=== PATIENT | female | born 1945 | race Caucasian/White ===

== ENCOUNTER 2023-07-23 16:18 | Inpatient (IN) | payer OTHER, SELFPAY ==
[2023-07-23] VITALS (14 sets, daily range): BP systolic 106–147; BP diastolic 66–101; BMI 27.4; BMI 27.2
[2023-07-23 13:33] LABS: % Basophils 0.3 % (0-2); % Eosinophils 0.4 % (0-6); % Immature Granulocytes 0.4 % (0-0.5); % Lymphocytes 17.6 % (20.5-51.1); % Monocytes 8.8 % (1.7-9.3); % Neutrophils 72.5 % (42.2-75.2); Absolute Basophils 0.1 10^3/uL (0-0.2); Absolute Eosinophils 0.1 10^3/uL (0-0.7); Absolute Immature Granulocytes 0.1 10^3/uL (0-0.05); Absolute Lymphocytes 2.9 10^3/uL (1.2-3.4); Absolute Monocytes 1.4 10^3/uL (0.1-0.6); Absolute Neutrophils 11.8 10^3/uL (1.4-6.5); Hematocrit 43.4 % (37.0-47.0); Hemoglobin 14.9 g/dL (12.0-16.0); Mean Corp Hgb Conc. 34.3 g/dL (33.0-37.0); Mean Corpuscular Hgb 29.5 pg (27.0-31.0); Mean Corpuscular Volume 85.9 fL (81.0-99.0); Mean Platelet Volume 10.1 fL (7.4-10.4); Nucleated Red Blood Cells % 0 %; Platelet Count 249 10^3/uL (130-400); Red Blood Cell Count 5.05 10^6/uL (4.20-5.40); Red Cell Dist. Width 13.5 % (11.5-14.5); White Blood Cell Count 16.2 10^3/uL (4.8-10.8)
[2023-07-23 13:56] LABS: D-Dimer 11.95 ug/mlFEU (0.00-0.50)
[2023-07-23 14:20] LABS: ALT (SGPT) 22 U/L (0-35); AST (SGOT) 30 U/L (14-36); Albumin 3.9 g/dl (3.5-5.0); Alkaline Phosphatase 78 U/L (38-126); Blood Urea Nitrogen 15 mg/dl (7-17); Calcium 9.9 mg/dl (8.4-10.2); Carbon Dioxide 25 mmol/L (22-30); Chloride 108 mmol/L (98-107); Estimated Creatinine Clearance 62 ml/min; Glucose 136 mg/dl (70-99); Potassium 4.7 mmol/L (3.5-5.1); Sodium 140 mmol/L (135-145); Total Bilirubin 0.4 mg/dl (0.2-1.3); Total Protein 6.7 g/dl (6.3-8.2); eGFR > 60.00
[2023-07-23 14:33] LABS: NT-proBNP 3960 pg/ml
--- NOTE | 2023-07-23 14:55 | ED.GENMED ---
History of Present Illness
General
Chief Complaint: Breathing Problem
Time Seen by Provider: 07/23/23 13:02
Travel History
Have you had any contact with someone who has COVID-19?: No
Do you have any symptoms of coronavirus? Fever > 100 degrees, chills, cough, shortness of breath, sore throat, loss of taste or smell, muscle aches, or headache?: No
History of Present Illness
History of Present Illness:
78-year-old female with no significant past medical history presents to the emergency department for evaluation of shortness of breath with exertion. She notes that the symptoms have been ongoing for approximately 1 week but yesterday became
dramatically more significant. States she cannot take more than 10-15 steps without becoming winded and feeling ill or syncopal. Denies any associated chest pain. Has noted that her heart rate is elevated at rest for the past several days.
Denies any fevers, chills, sweats, coughing, nausea, vomiting, or leg swelling. Has no prior history of DVT or PE. Denies any recent prolonged travel, surgeries, or immobilization
Past History
Past History
ED Past Medical History: None
ED Past Surgical History: None
Review of Systems
Review of Systems
Allergies reviewed?: Yes
All Other Systems: ROS reviewed and negative except as documented in HPI and ROS
Phy Exam
Physical Exam
Physical Exam:
GEN: Well appearing, NAD, WDWN
Eyes: PERRLA, EOMs intact, no scleral icterus
HENT: NCAT, oral mucosa moist
Lungs: CTAB, no wheezes, rales, rhonchi, normal chest wall excursion
Cardiac: Tachycardic, regular, no murmur
Abdomen: S, NT, ND, NABS, no masses or hepatosplenomegaly
Neuro: AO x 3
MSK: No gross deformity or ecchymosis. No edema. No digital clubbing
Skin: No rashes, petechiae. Normal color, no pallor or jaundice.
Psych: Calm, cooperative, proper hygiene
Scores
Heart Failure Risk
Heart Failure Risk Score: Not Applicable
Course
Orders/Labs/Results
Orders:
Orders
07/23/23 13:01
Electrocardiogram (*1) Urgent
Reason for Study: Tachycardia
EKG- Treatment ONCE
07/23/23 13:26
Complete Blood Count/With Diff Urgent
Comprehensive Metabolic Panel Urgent
D-Dimer Urgent
NT-proBNP Urgent
PTT Urgent
Comment: PTT ADDED ON BY FLOOR 2:40PM 07-23-23
TSH Reflex To Free T4 Urgent
Troponin I Urgent
07/23/23 14:05
CT Chest Pe Study Urgent
Comment:
Reason For Exam: SOB, elevated dimer
07/23/23 14:36
PTT Urgent
Comment: Obtain baseline before beginning heparin infusion if not already collected
Heparin 6,200 units IV NOW STA
Nursing to Place Non Medication Order As Directed
Physician Order: PTT 6 hours after initial start of Heparin infusion
07/23/23 14:42
Add On- LAB Urgent
Tests Added?: PTT
07/23/23 14:45
Heparin 82064 Units/250 ml 25,000 units in 250 ml IV PER PROTOCOL
Weight to be used for heparin protocol in kilograms (kg):: 77
Protocol:: DVT/PE
PTT Goal Range to be used:: PTT 73 to 111 seconds
Order type:: Initial
INITIAL Infusion Dose (UNITS/KG/hr) & then follow protocol:: 18 units/kg/hr
Infusion Dose in UNITS/hr & then follow protocol (UNITS/hr):: 1,400
INFUSION RATE in mL/hr & then follow protocol (mL/hr):: 14
For DVT/PE algorithm, re-bolus for low PTT?: Yes
PTT less than or equal to 64 seconds:: Re-bolus 80 units/kg (max 10,000units). Increase by 300 units/hr
(+ 3mL/hr)
PTT 64.1 to 72.9 seconds:: Re-bolus 40 units/kg (max 5,000 units). Increase by 200 units/hr
(+ 2mL/hr)
PTT 73 to 111 seconds:: Target Range. No change in rate.
PTT 111.1 to 130.9 seconds:: Decrease rate by 200 units/hr (- 2 mL/hr)
PTT 131 to 199.9 seconds:: HOLD for 1 hr. Then decrease by 200 units/hr (- 2mL/hr)
PTT greater than or equal to 200 seconds:: HOLD for 2 hrs & Notify Provider. Then decrease by 300 units/hr
(- 3mL/hr)
Lab follow-up:: Each change, PTT q6h until 2 consecutive are therapeutic. Then
PTT daily.
07/23/23 15:02
Heparin 3,100 units IV PRN PRN
Heparin 6,200 units IV PRN PRN
07/23/23 15:47
Echo 2D MMode Color/Doppler Stat
Reason for Study: submassive PE
Cardiology Consult: Delbert Mendez
07/23/23 21:15
PTT Routine
Abnormal Lab Results
07/23/23
13:26
WBC 16.2 H 10^3/uL
(4.8-10.8)
Abs Immat Gran (auto) 0.1 H 10^3/uL
(0-0.05)
Absolute Neuts (auto) 11.8 H 10^3/uL
(1.4-6.5)
Absolute Monos (auto) 1.4 H 10^3/uL
(0.1-0.6)
Lymphocytes % 17.6 L %
(20.5-51.1)
D-Dimer 11.95 H ug/mlFEU
(0.00-0.50)
Chloride 108 H mmol/L
(98-107)
Glucose 136 H mg/dl
(70-99)
Troponin I 1.620 H* ng/ml
07/23/23 13:26
07/23/23 13:26
Vital Signs
Initial and Last Documented VS:
Initial Vital Signs
Temp Pulse Resp BP Pulse Ox
97.8 F 109 20 141/91 96
07/23/23 12:57 07/23/23 12:57 07/23/23 12:57 07/23/23 12:57 07/23/23 12:57
Last Documented Vital Signs
Temp Pulse Resp BP Pulse Ox
97.8 F 106 17 147/96 97
07/23/23 12:57 07/23/23 15:30 07/23/23 15:30 07/23/23 15:21 07/23/23 15:30
MDM/Problems Addressed
MDM/Problems Addressed:
78-year-old female presenting with exertional shortness of breath and tachycardia, found to have submassive bilateral pulmonary embolism. Evidence for right heart strain noted on labs. Case was reviewed with interventional radiology and
line inspector, at this time no immediate indication for thrombolysis but stat echo was requested to evaluate degree of heart strain and pulmonary artery pressures. Will be admitted to the hospital service intensive care unit on IV heparin
Comment
Comment:
EKG independently interpreted by me shows a sinus tachycardia at a rate of [address] depressions laterally, QTc of 436
*Critical Care Note
Total Time (30-74mins, 75-104mins- exclusive of procedures): 45 minutes
comment:
Critical care time: 45 minutes
Critical care time was exclusive of: Separately billable procedures, treating other patients, and teaching time
Critical care was necessary to treat or prevent imminent or life-threatening deterioration of the following conditions: Submassive pulmonary embolism
Critical care time spent personally by me on the following activities:
[x] Review of old charts
[x] Obtaining history from patient or surrogate
[x] Ordering and review of the laboratory studies
[x] Ordering and review of radiographic studies
[x] Ordering and performing treatments and interventions
[x] Patient patient's response to treatment
[x] Development of treatment plan with patient or surrogate
ED Attending Note
-
Portions of this chart may have been created with voice recognition software.� Occasional wrong word or��sound alike� substitutions may have occurred due to the inherent limitations of voice recognition software.
Discharge Plan
Departure
Patient Disposition: Admit
Date of Disposition: 07/23/23
Time of Disposition: 15:30
Admit to: Telemetry
Presentation/result/management discussed w/ accepting MD/DO: Hospitalist
Discharge Problem:
Bilateral pulmonary embolism
Prescriptions:
No Action
pseudoephedrine HCl [Sufedrin] 60 mg Tablet
60 mg PO BIDPRN PRN (Reason: allergies)
guaifenesin [Mucinex] 600 mg Tablet Extended Release 12hr
600 mg PO BIDPRN PRN (Reason: cough)
Referrals:
Skyla Pereira PA-C [Family Provider] -
Interventions
Interventions:
*Risk Screen - Suicide Last Done: 07/23/23 12:57
*General Assessment Last Done: 07/23/23 12:57
*Neglect/Abuse Screening Last Done: 07/23/23 12:57
ED- Cardiac Assessment Last Done: 07/23/23 13:04
ED- Pulmonary Assessment Last Done: 07/23/23 13:04
Discharge Date and Time
Print Language: NORTHER[place] IRISH
[2023-07-23] MEDS: HEPARIN 25000 UNITS/250 ML IV (15:14)
[2023-07-23] MEDS: HEPARIN 6200 UNITS IV (15:17)
--- NOTE | 2023-07-23 16:04 | HPS.HSE ---
Family Physician
-
Family Physician: Skyla Pereira PA-C
Chief Complaint
-
shortness breath,
History of Present Illness
Patient is a 78-year-old female with past medical history of lumbar radiculopathy, left knee meniscal tear, seasonal allergy came to ER with new onset of shortness of breath chest discomfort for last 1 week. First noticed new onset of exertional
shortness of breath approximately week back, no associated cough/hemoptysis/fever episode. Last 24-hour patient felt symptoms rapidly worsening and came to ER. Patient reported episode of palpitation up to a point where patient felt she would pass
out when doing grocery in supermarket.
Patient denies of having any abdominal/GI/ complaints.
Patient denies of having previous history of blood clot. No recent travel. Up-to-date for age-appropriate cancer screening. No family history of hypercoagulable disorder. Not on any hormonal supplements.
Medical History
Past Medical History
Past Medical History: Reports Other
Additional Past Medical History:
lumbar radiculopathy, left knee meniscal tear, seasonal allergy
Past Surgical History: Reports Other
Social History
Tobacco: Non-smoker
Alcohol: None
Drug: None
Living: With Family
Employment: Retired
Family History
Family History: Other (no family history of cancer or hypercoagulable disorder)
Allergies / Home Medications
Allergies reflects when Allergies were last updated in [employer].
Home Medications with original date entered in [employer]
Allergy/Medication List:
Allergies
Allergy/AdvReac Type Severity Reaction Status Date / Time
No Known Allergies Allergy Verified 07/23/23 12:57
Home Medications
guaifenesin 600 mg tablet, extended release 12 hr (Mucinex) 600 mg PO BIDPRN PRN cough 07/23/23
pseudoephedrine HCl 60 mg tablet 60 mg PO BIDPRN PRN allergies 07/23/23
Review of Systems
-
A 12 point ROS was completed and negative except as noted: Yes
Physical Exam
Vital Signs
Vital Signs
Temp Pulse Resp BP Pulse Ox
97.8 F 106 17 147/96 97
07/23/23 12:57 07/23/23 15:30 07/23/23 15:30 07/23/23 15:21 07/23/23 15:30
Physical Exam
General: No Apparent Distress
HEENT: NormoCephalic, Moist mucous membranes and Atraumatic
Respiratory: Clear
Cardiac: S1/S2 and Regular Rhythm; No Murmur or Rub
GI: Soft, Non Tender, Non Distended and Normal Bowel Sounds; No Organomegaly
Rectal: Deferred by Provider
Musculoskeletal: No Clubbing, No Cyanosis and No Edema
Skin: No Rash
Neuro: Nonfocal/grossly intact
Laboratory Results
-
07/23/23 13:26
07/23/23 13:26
Laboratory Results
APTT 26.0 Sec (23.4-35.0) 07/23/23 13:26
Total Bilirubin 0.4 mg/dl (0.2-1.3) 07/23/23 13:26
AST 30 U/L (14-36) 07/23/23 13:26
ALT 22 U/L (0-35) 07/23/23 13:26
Alkaline Phosphatase 78 U/L (38-126) 07/23/23 13:26
Troponin I 1.620 ng/ml H* 07/23/23 13:26
Data Reviewed
-
Diagnostic Radiology: Image Personally Visualized and interpreted, Report Reviewed by me, Discussed with Patient and Discussed with Family
CT Scan: Image Personally Visualized and interpreted, Report Reviewed by me, Discussed with Physician, Discussed with Patient and Discussed with Family
Lab Data: Labs Reviewed by me, Discussed with Patient and Discussed with Family
Impression/Plan
-
CT chest PE
Examination is positive for pulmonary embolism, with large embolus burden. There is evidence for significant right heart strain.
Trace amount of pleural fluid on the right. Mild dependent atelectasis in the posterior lower lungs. At this time, there is no evidence for pulmonary infarction by CT.
Coronary artery calcifications are present. Please correlate with symptoms of and risk factors for coronary artery disease, with further workup as clinically appropriate.

1. Bilateral PE - submassive
Right heart strain
-Presented for 1 week of shortness of breath
-+ Palpitations/presyncope feeling. No lower extremity swelling
-Denies travel/history of cancer/family history of hypercoagulable disorder/personal history of previous blood clots/no h/o of miscarriages
-Up-to-date for age-appropriate screening
-CT chest PE finding as above
-Emergent TTE ordered in ER
-Trop 1.6 and ProBNP 3960. High D-dimer of 11.95
-PESI score - 98 - class III (age/HR 110). 30 day mortality of 3.2-7.1%
-Traffic Sign Supervisor/interventional radiology evaluated patient finding and will consider thrombolysis if clinical condition deteriorates
-Patient started on heparin drip in ER, continue
-Admit patient to ICU level care
2. Troponin elevation
-Type II elevation from right heart strain from bilateral PE
-EKG reviewed and no ST seg changes
-no previous h/o CAD/non smoker
3. Leukocytosis
-Presumed reactive in nature
-No productive cough/dysuria/diarrhea.
-Monitor off of antibiotic
4. Hyperglycemia
-check A1c in morning
Seasonal allergies
Lumbar radiculopathy
History of left meniscal tear
DVT PPX -heparin drip
Full code
Total time spent : 79 mins
I personally saw and examined the patient.
I have reviewed all diagnostic interpretations and treatment plans as written.
Time includes patient management by me, time spent at the patients bedside, time to review lab and imaging results, discussing patient care, documentation in the medical record, and time spent with the family or caregiver and discussing care plan
with RN/Consultants.
--- NOTE | 2023-07-23 17:35 | CON.PUL ---
Consultation
Consultation Request
Date/Time Consultation Requested: 07-23-23
Date/Time Consultation Performed: 07-23-23
Requesting Provider: Hospitalist mayra
Performing Provider: Dr Gillis
Reason for Consultation: PE
Medical History
-
Chief Complaint: VALDES
History of Present Illness:
Mrs Mariaelena Painting is a 78/W adm 07-22 with new onset VALDES and a presyncopal episode on d MANAGED CARE COORDINATOR, symptoms developed when she was walking from her car to a convenience store, overnight developed mild intermittent chest pain without radiation. Reports no
past medical history, she is not on outpatient medications, denies allergies. Denies family history of VTE. Denies recent trauma or prolonged periods of immobilization. Reports that back in October 2022 she sustained a left constraint strain and
was recommended a soft cast which she used only for 2 days, then received left knee joint injection, shortly after this event she flew to a back from [place] with no issues. Back in April 2023, she sustained mechanical fall and hit her left
knee and ribs, she follow her PCP on these, apparently the injury was a no consequence. Denies unintentional weight loss, denies night sweats or other symptoms of significance prior to the current event
Hysterectomy for uterine/bladder prolapse 2014
Negative mammogram Nov 2022
Negative colonoscopy at age 70
Nonsmoker
Seen at ER, in spite of bilateral PE has remained hemodyn and resp gonzalez stable (on RA)
Past Medical History
Past Medical History: None and Other (On no meds, NKDA)
Past Surgical History: None
Social History
Tobacco: Non-smoker
Alcohol: None
Drug: None
Personal:
Living: With Family
Employment: Retired
Family History
Family History: Reviewed & Not Pertinent
Allergies / Home Medications
Allergies
Allergy/AdvReac Type Severity Reaction Status Date / Time
No Known Allergies Allergy Verified 07/23/23 12:57
Home Medications
�Medication �Instructions �Recorded �Confirmed �Last Taken �Type
guaifenesin 600 mg tablet, 600 mg PO BIDPRN PRN cough 07/23/23 07/23/23 Unknown History
extended release 12 hr (Mucinex)
pseudoephedrine HCl 60 mg tablet 60 mg PO BIDPRN PRN allergies 07/23/23 07/23/23 Unknown History
Review of Systems
-
History Source: Patient
All other systems: Negative unless noted
Constitutional: Fatigue
Respiratory: Trouble Breathing (VALDES)
Neuro: Dizzy (presyncope event on d MANAGED CARE COORDINATOR)
Vitals / Labs / Diagnostic Testing
Vital Signs
Temp Pulse Resp BP Pulse Ox
97.8 F 106 25 141/101 94
07/23/23 12:57 07/23/23 17:00 07/23/23 17:00 07/23/23 17:00 07/23/23 17:00
Lab Data
07/23/23 13:26
07/23/23 13:26
Laboratory Results
07/23/23
13:26
APTT 26.0
Diagnostic Testing:
Physical Exam
-
HEENT: Normocephalic, Moist Mucous Membranes and Thrush (n)
Cardiovascular: Regular Rhythm, Murmur (n), Peripheral Edema (n), Calf Tenderness (n) and JVD (n)
Respiratory: Clear and Non-Labored Respirations
GI: Soft, Non Distended and Non Tender
Neurology: Awake, AO x 3 and No Motor Deficits
Skin: Warm
General: Respiratory Distress (n at rest)
Assessment
-
Assessment:
Mrs Mariaelena Painting is a 78/W adm 07-22 with new onset VALDES and a presyncopal episode on MANAGED CARE COORDINATOR, symptoms developed when she was walking from her car to a convenience store, overnight developed mild intermittent chest pain without radiation. Reports no
past medical history, she is not on outpatient medications, denies allergies. Denies family history of VTE. Denies recent trauma or prolonged periods of immobilization. Reports that back in October 2022 she sustained a left constraint strain and
was recommended a soft cast which she used only for 2 days, then received left knee joint injection, shortly after this event she flew to a back from [place] with no issues. Back in April 2023, she sustained mechanical fall and hit her left
knee and ribs, she follow her PCP on these, apparently the injury was a no consequence. Denies unintentional weight loss, denies night sweats or other symptoms of significance prior to the current event
Impression:
Bilateral R>L PE
No PMH or FH or VTE
Markedly elevated D-dimer
Presyncopal event on d MANAGED CARE COORDINATOR
Conditions MANAGED CARE COORDINATOR:
Hysterectomy for uterine/bladder prolapse 2014
Negative mammogram Nov 2022
Negative colonoscopy at age 70
Nonsmoker
Plan:
O2 protocol as needed
Currently on RA, POx 97%
Not on home O2 or BDs
Evaluate O2 needs PTD
Acapella valve
Aspiration precautions
CTA chest: R>>L PE
TTE: Normal RV size with decreased systolic function. Free wall is akinetic with hyperdynamic apex, Ontiveros's sign. Mild tricuspid regurgitation. Top normal estimated PASP of 38
CAMILO doppler US: pending
BNP ^
D-dimer ^
Trop ^
EKG ST 108
Eventual hypercoagulable workup and age/sex related cancer screening as outpatient
Full PESI:
Heparin drip
Benefits and risks of thrombolytics therapy were reviewed with patient
Patient has mild tachycardia and no hypotension in spite of above mentioned TTE changes
Currently risks of aggressive thrombolytic therapy outweigh [id number] notified of options, reasons for conservative standard of care therapy and is in agreement
IRad recommends conservative mgmt for now and to reevaluate for potential intervention accordingly
Bedrest �24-48 hours
Will reevaluate for initiation of DOAC depending on response to IV hep and observation
DVT prophylaxis-on full anticoagulation
Early nutrition
Early mobilization
Outpatient pulmonary follow-up with [facility]
IMU level of care, follow with pulmonary once off ICU
D/w Mrs Painting and her daughter at ER
D/w ICU RNs
[2023-07-23 18:06] LABS: INR 1.06; PT 13.6 Sec (11.4-14.6)
[2023-07-23 18:25] LABS: Magnesium 2.2 mg/dl (1.6-2.3)
--- NOTE | 2023-07-23 19:35 | PTCARENOTE ---
Received pt from ED around 6pm on heparin gtt at 1400 units/hr. Pt on room air with sats mid 90s. Pt denies sob at rest but is tachypneic 20-30s. Pt does have a dry cough, that she reports she has also had over the last week. Pt able to
participate in answering admission questions without increased hypoxia. Pt denies pain. Requesting to go to bathroom, but made aware of bedrest orders. Pt opted for purewick. Pt updated to bleeding precautions and plan of care. Call [facility] in
reach.
--- NOTE | 2023-07-23 22:52 | PTCARENOTE ---
Received patient AAOx3, following commands, denying pain. Sinus tach, 100s. BP stable, 130s-140s/80s-90s. No edema, palpable radial and pedal pulses bilaterally. Normothermic. 93% on room air, lung sounds clear, diminished and fine crackles at the
bases. Last BM today prior to admission. Abdomen soft, nontender, positive bowel sounds. Purewick in place draining yellow urine. Skin intact. Right AC peripheral WNL, heparin gtt infusing per protocol. Next PTT 0430. Call [facility] within reach.
[2023-07-24] VITALS (8 sets, daily range): BP systolic 101–148; BP diastolic 57–88; BMI 27.7
[2023-07-24 04:47] LABS: Hematocrit 40.9 % (37.0-47.0); Hemoglobin 13.8 g/dL (12.0-16.0); Mean Corp Hgb Conc. 33.7 g/dL (33.0-37.0); Mean Corpuscular Hgb 29.6 pg (27.0-31.0); Mean Corpuscular Volume 87.6 fL (81.0-99.0); Mean Platelet Volume 10.6 fL (7.4-10.4); Platelet Count 242 10^3/uL (130-400); Red Blood Cell Count 4.67 10^6/uL (4.20-5.40); Red Cell Dist. Width 13.4 % (11.5-14.5); White Blood Cell Count 15.9 10^3/uL (4.8-10.8)
--- NOTE | 2023-07-24 04:55 | PTCARENOTE ---
CHG bath done, patient brushed teeth and used mouth wash. Sheets changed, labs sent. Call [facility] within reach.
[2023-07-24 04:56] LABS: APTT 96.3 Sec (23.4-35.0)
--- NOTE | 2023-07-24 05:12 | DOWNTIME ---
There was a [employer] Downtime on 07/23/2023 from 0100 to 07/24/2023 at 0300. Downtime documentation of patient's care, including medication administrations, has been reconciled in the electronic record per guidelines. Refer to the
patient's paper chart under the miscellaneous tab to see printed paper medication records and downtime forms.
[2023-07-24 05:53] LABS: Blood Urea Nitrogen 14 mg/dl (7-17); Calcium 9.3 mg/dl (8.4-10.2); Carbon Dioxide 21 mmol/L (22-30); Chloride 106 mmol/L (98-107); Estimated Creatinine Clearance 70 ml/min; Glucose 123 mg/dl (70-99); Potassium 4.4 mmol/L (3.5-5.1); Sodium 136 mmol/L (135-145); eGFR > 60.00
--- NOTE | 2023-07-24 07:13 | W.PN.PUL3 ---
Today's Communication / Plan
-
IV hep
Telem
Assessment
-
Assessment:
Mrs Mariaelena Painting is a 78/W adm [birth year]-14 with new onset VALDES and a presyncopal episode on d CORPORATE PLANNING MANAGER, symptoms developed when she was walking from her car to a convenience store, overnight developed mild intermittent chest pain without radiation. Reports no
past medical history, she is not on outpatient medications, denies allergies. Denies family history of VTE. Denies recent trauma or prolonged periods of immobilization. Reports that back in October 2022 she sustained a left constraint strain and
was recommended a soft cast which she used only for 2 days, then received left knee joint injection, shortly after this event she flew to a back from [place] with no issues. Back in April 2023, she sustained mechanical fall and hit her left
knee and ribs, she follow her PCP on these, apparently the injury was a no consequence. Denies unintentional weight loss, denies night sweats or other symptoms of significance prior to the current event
Impression:
Bilateral R>L PE
Potentially provoked event due to L knee injury secondary to fall in Apr 2023, but no clear cut case
No PMH or FH or VTE
Markedly elevated D-dimer
Presyncopal event on d CORPORATE PLANNING MANAGER
Conditions CORPORATE PLANNING MANAGER:
Hysterectomy for uterine/bladder prolapse 2014
Negative mammogram Nov 2022
Negative colonoscopy at age 70
Nonsmoker
Plan:
O2 protocol as needed
Currently on RA, POx 97%
Not on home O2 or BDs
Evaluate O2 needs PTD
Acapella valve
Aspiration precautions
CTA chest: R>>L PE
TTE: Normal RV size with decreased systolic function. Free wall is akinetic with hyperdynamic apex, Ontiveros's sign. Mild tricuspid regurgitation. Top normal estimated PASP of 38
CAMILO doppler US: LLE DVT (popliteal, peroneal, posterior tibial)
Potentially provoked event due to L knee injury secondary to fall in Apr 2023, but no clear cut case
BNP ^
D-dimer ^
Trop ^
EKG ST 108
Eventual hypercoagulable workup and age/sex related cancer screening as outpatient
Full PESI: class II, low risk 1.7-3.5% 30-d mortality
Heparin drip, continue for now
Benefits and risks of thrombolytics therapy were reviewed with patient
Patient has mild tachycardia and no hypotension in spite of above mentioned TTE changes
Currently risks of aggressive thrombolytic therapy outweigh [id number] notified of options, reasons for conservative standard of care therapy and is in agreement
IRad recommends conservative mgmt for now and to reevaluate for potential intervention accordingly
Continue bedrest �24-48 hours, can go OOB with assistance
Will reevaluate for initiation of DOAC tomorrow depending on response to IV hep and observation
DVT prophylaxis-on full anticoagulation
Early nutrition
Early mobilization
Outpatient pulmonary follow-up with [facility], patient agreed
Will need outpatient Hem evaluation and follow up, patient agreed
IMU level of care on adm, follow with pulmonary once off ICU
Stable for telemetry 07-23
D/w Mrs Painting and her daughter at ER
D/w ADMINISTRATIVE SUPPORT ASSISTANT
D/w Dr Cohn 07-23
Subjective Data
-
Date of Service:
Date of Service: July 24, 2023
Chief Complaint: Pulmonary Follow Up
Subjective:
No major events reported overnight
No significant hemodynamic changes, respiratory gonzalez stable since admission
No chest pain, no dyspnea at rest on room air
No presyncopal events
In good spirits
Review of Systems
General: Fever (n), Sweats (n), Chills (n) and Satisfactory Appetite
HEENT: Epistaxis (n) and Dysphagia (n)
Cardiopulmonary: Dyspnea, Cough (n), Wheezing (n), Chest Pain (n), Edema (n), Lower Extremity Pain (n) and Hemoptysis (n)
GI: Abdominal Pain (n), Nausea (n) and Vomiting (n)
Neuro: Weakness (n)
Genitourinary: Hematuria (n)
Objective Data
Data Reviewed
Vital Signs / I&O / Oxygen:
Vital Signs
Temp Pulse Resp BP Pulse Ox
97.1 F 104 19 101/59 92
07/24/23 03:41 07/24/23 06:00 07/24/23 06:00 07/24/23 06:00 07/24/23 06:00
Intake and Output
07/23/23 07/24/23 07/25/23
06:59 06:59 06:59
Intake Total 168 / 168
Output Total 600 / 600
Balance -432 / -432
SaO2 92
Physical Exam
General: Comfortable
HEENT: Normocephalic and Moist Mucous Membranes
Cardiovascular: Regular Rhythm, Murmur (n), JVD (n) and Peripheral Edema (n)
Respiratory: Clear, Non-Labored Respirations and Stridor (n)
GI: Soft, Non Distended and Non Tender
Neurology: Awake, AO x 3 and No Motor Deficits
Skin: Warm
Labs/Micro/Reports
Lab Data
07/24/23 04:31
07/24/23 04:31
Laboratory Results
07/23/23 07/23/23 07/23/23
13:26 14:36 21:15
PT 13.6 Cancelled
INR 1.06 Cancelled
APTT 26.0 Cancelled
07/23/23 07/24/23
21:49 04:31
PT
INR
APTT 106.0 H 96.3 H
--- NOTE | 2023-07-24 07:50 | W.PN.HOSP.TC ---
Today's Communication/Plan
-
see note
Assessment / Plan
Assessment / Plan
CT chest PE
Examination is positive for pulmonary embolism, with large embolus burden. There is evidence for significant right heart strain.
Trace amount of pleural fluid on the right. Mild dependent atelectasis in the posterior lower lungs. At this time, there is no evidence for pulmonary infarction by CT.
Coronary artery calcifications are present. Please correlate with symptoms of and risk factors for coronary artery disease, with further workup as clinically appropriate.
LE venous doppler
1. Left lower extremity DVT involving the popliteal, peroneal and posterior tibial veins.
2. No evidence of deep venous thrombosis in the right lower extremity.

1. Bilateral PE - submassive
Right heart strain
-Presented for 1 week of shortness of breath
-+ Palpitations/presyncope feeling. No lower extremity swelling
-Denies travel/history of cancer/family history of hypercoagulable disorder/personal history of previous blood clots/no h/o of miscarriages
-Up-to-date for age-appropriate screening
-CT chest PE finding as above
-TTE showing PAP of 38mm hg with positive mcconell sign
-Trop 1.6 and ProBNP 3960. High D-dimer of 11.95 at admission
-PESI score - 98 - class III (age/HR 110). 30 day mortality of 3.2-7.1%
-LE venous Doppler showing LLE DVT as above
-Dog Food Dough Mixer/interventional radiology evaluated patient finding and will consider thrombolysis if clinical condition deteriorates
-Patient on heparin drip in ER, continue for another 24 hrs. will transition to DOAC
-Anti phospholipid ab panel sent, will need f/u with hematology in office.
2. Troponin elevation
-Type II elevation from right heart strain from bilateral PE
-EKG reviewed and no ST seg changes
-no previous h/o CAD/non smoker
-Trop fluctuating with slow trend down
3. Leukocytosis
-Presumed reactive in nature
-No productive cough/dysuria/diarrhea.
-Monitor off of antibiotic
4. Hyperglycemia
-check A1c in morning
Seasonal allergies
Lumbar radiculopathy
History of left meniscal tear
DVT PPX -heparin drip
Full code
Total time spent : 53 mins
Anticipated Discharge: 24 - 48 hours
Subjective/Interval History
-
Date of Service: July 24, 2023
resting comfortably in bed
denies chest pain/dizziness overnight
Objective Data
-
Labs:
Laboratory Results
07/23/23 07/24/23
21:49 04:31
WBC 15.9 H
Hgb 13.8
Hct 40.9
Plt Count 242
APTT 106.0 H 96.3 H
Sodium 136
Potassium 4.4
Chloride 106
Carbon Dioxide 21 L
BUN 14
Creatinine 0.7
Glucose 123 H
Calcium 9.3
Vital Signs:
Vital Signs
Temp Pulse Resp BP Pulse Ox
99.7 F 104 19 101/59 92
07/24/23 07:25 07/24/23 06:00 07/24/23 06:00 07/24/23 06:00 07/24/23 06:00
I&O
07/23/23 07/24/23 07/25/23
06:59 06:59 06:59
Intake Total 168 / 582 414 / 414
Output Total 600 / 600
Balance -432 / -18 414 / 414
Review of Systems
-
Respiratory: Reports No Symptoms
Cardiac: Reports No Symptoms
Abdomen/GI: Reports No Symptoms
Physical Exam
-
General: No Apparent Distress and Comfortable
HEENT: Negative Oxygen
Respiratory: Clear to Auscultation
Cardiac: Regular Rhythm, S1/S2 and Tachycardic; Negative Murmur or Rub
GI: Soft, Nontender and Nondistended
Musculoskeletal: No Edema
Neuro: Awake, Alert, Oriented, No Motor Deficits and Nonfocal/Grossly Intact
Psych: Calm
[2023-07-24] MEDS: HEPARIN 25000 UNITS/250 ML IV (09:03)
[2023-07-24 10:41] LABS: Glycohemoglobin (HgbA1c) 6.1 % (4.0-5.6)
--- NOTE | 2023-07-24 11:18 | PTCARENOTE ---
Report given to Kimberlyn who will assume care of pt upon transfer. Pt and daughter aware of transfer. Pt without complaint at time of transfer.
--- NOTE | 2023-07-24 11:24 | CM ---
Mariaelena was admitted to yesterday afternoon with b/l PE and DVT. Typically she is (I) amb and adls; lives with her daughter on the first floor of a 2 story home.
Mariaelena will be new to [facility] at discharge; [facility] ([place]) contacted for cost which will be $47 for 60 tablets. Pt and daughter made aware of same.
Mariaelena is being transferred to another unit today. She anticipates returning home at discharge with no needs.
PCP is Skyla Pereira
Pharmacy is [facility] in [place]
PLAN: DISCHARGE HOME WITH NO NEEDS
[2023-07-24] MEDS: TYLENOL 650 MG PO ×2 (15:52→20:13)
[2023-07-24] MEDS: LIDOCAINE 4% PATCH 1 PATCH TOPICAL (21:44)
[2023-07-25] VITALS (7 sets, daily range): BP systolic 93–149; BP diastolic 69–87
[2023-07-25] MEDS: TYLENOL 650 MG PO ×2 (05:17→12:28)
[2023-07-25] MEDS: HEPARIN 25000 UNITS/250 ML IV (05:18)
[2023-07-25] MEDS: DILAUDID 0.25 MG IV (05:43)
[2023-07-25 06:36] LABS: Hematocrit 43.5 % (37.0-47.0); Hemoglobin 14.6 g/dL (12.0-16.0); Mean Corp Hgb Conc. 33.6 g/dL (33.0-37.0); Mean Corpuscular Volume 86.5 fL (81.0-99.0); Mean Platelet Volume 10.4 fL (7.4-10.4); Platelet Count 268 10^3/uL (130-400); Red Blood Cell Count 5.03 10^6/uL (4.20-5.40); Red Cell Dist. Width 13.6 % (11.5-14.5); White Blood Cell Count 19.6 10^3/uL (4.8-10.8)
[2023-07-25 06:41] LABS: APTT 62.9 Sec (23.4-35.0)
[2023-07-25] MEDS: HEPARIN 6200 UNITS IV (07:11)
[2023-07-25 07:24] LABS: Blood Urea Nitrogen 12 mg/dl (7-17); Carbon Dioxide 22 mmol/L (22-30); Chloride 105 mmol/L (98-107); Estimated Creatinine Clearance 70 ml/min; Glucose 131 mg/dl (70-99); Potassium 4.3 mmol/L (3.5-5.1); Sodium 137 mmol/L (135-145); eGFR > 60.00
--- NOTE | 2023-07-25 09:07 | PN.CDI ---
CDI
- -
CDI:
Physician Documentation Request
Admit Date: 07/23/23 16:18
Dear Doctor Lalit,
Please review the following and provide your response in the progress notes.
Clinical Indicators:
- 07/23 PN 'Bilateral PE - submassive...Right heart strain'
- 07/22 Echo 'Top normal estimated PASP of 38 mmHg'
- 'Free wall is akinetic with hyperdynamic apex, Ontiveros's sign'
Please clarify the diagnosis with the above findings:
Pulmonary embolism with acute cor pulmonale
Pulmonary embolism without acute cor pulmonale
Other
Use of terms such as suspected, likely, concern for, or probable (associated with a specific diagnosis that is being evaluated, monitored, or treated as if it exists) are acceptable and can be coded in the inpatient setting, when documented at the
time of discharge.
Thank you,
Jane Eason RN
CDI Specialist
Please use your independent medical judgment in providing your response.
--- NOTE | 2023-07-25 09:34 | W.PN.PUL3 ---
Today's Communication / Plan
-
Acute onset R sided pain, CXR this AM did show new R infiltrate
Will obtain urgent CT chest w/ IV to r/o infarct vs bleed
Reviewed with care team, may need to hold IV hep if suggestive
Pain control locally
Assessment
-
Mrs Mariaelena Painting is a 78/W adm 05-14 with new onset VALDES and a presyncopal episode on d MIS SPECIALIST, symptoms developed when she was walking from her car to a convenience store, overnight developed mild intermittent chest pain without radiation. Reports no
past medical history, she is not on outpatient medications, denies allergies. Denies family history of VTE. Denies recent trauma or prolonged periods of immobilization. Reports that back in October 2022 she sustained a left constraint strain and
was recommended a soft cast which she used only for 2 days, then received left knee joint injection, shortly after this event she flew to a back from [place] with no issues. Back in April 2023, she sustained mechanical fall and hit her left
knee and ribs, she follow her PCP on these, apparently the injury was a no consequence. Denies unintentional weight loss, denies night sweats or other symptoms of significance prior to the current event
Bilateral R>L PE
Potentially provoked event due to L knee injury secondary to fall in Apr 2023, but no clear cut case
No PMH or FH or VTE
Markedly elevated D-dimer
Presyncopal event on d MIS SPECIALIST
New onset R sided pleuritic pain 07/24/23
Conditions MIS SPECIALIST:
Hysterectomy for uterine/bladder prolapse 2014
Negative mammogram Nov 2022
Negative colonoscopy at age 70
Nonsmoker
osteoporosis
high cholesterol
basal cell cancer removal on left eye/pentecostalism area 01/26
cataract removal b/l 2015
hysterectomy 2004
colonoscopy 2015
Plan:
O2 protocol as needed--Currently on RA, POx 97%
Not on home O2 or BDs
Acapella valve
Aspiration precautions
She has new onset R sdied pleuritic pain, CXR this AM with new R sided infiltrate
Concerning for infarct vs hemorrhage
Will obtain urgent CT chest, reviewed with team
May need to hold IV heparin if suggestive of bleeding
CTA chest: R>>L PE
TTE: Normal RV size with decreased systolic function. Free wall is akinetic with hyperdynamic apex, Ontiveros's sign. Mild tricuspid regurgitation. Top normal estimated PASP of 38
CAMILO doppler US: LLE DVT (popliteal, peroneal, posterior tibial)
Potentially provoked event due to L knee injury secondary to fall in Apr 2023, but no clear cut case
BNP ^
D-dimer ^
Trop ^
EKG ST 108
Eventual hypercoagulable workup and age/sex related cancer screening as outpatient
Full PESI: class II, low risk 1.7-3.5% 30-d mortality
Heparin drip, continue for now
Benefits and risks of thrombolytics therapy were reviewed with patient
Patient has mild tachycardia and no hypotension in spite of above mentioned TTE changes
Currently risks of aggressive thrombolytic therapy outweigh [id number] notified of options, reasons for conservative standard of care therapy and is in agreement
IRad recommends conservative mgmt for now and to reevaluate for potential intervention accordingly
Continue bedrest �24-48 hours, can go OOB with assistance
Will reevaluate for initiation of DOAC tomorrow depending on response to IV hep and observation
DVT prophylaxis-on full anticoagulation
Early nutrition
Early mobilization
Outpatient pulmonary follow-up with [facility], patient agreed
Will need outpatient Hem evaluation and follow up, patient agreed
IMU level of care on adm, follow with pulmonary once off ICU
Stable for telemetry 07-23
D/w Mrs Painting and her daughter at ER
D/w WATER RECLAMATION SYSTEMS OPERATOR
D/w Dr Cohn 07-23
Subjective Data
-
Date of Service:
Date of Service: July 25, 2023
Chief Complaint: Pulmonary Follow Up
Subjective:
currently on room air
she notes new onset R sided pleuritic pain at 8pm overnight, this has not lessened
6/10 pain, hurts to take deep breath
on IV heparin
Objective Data
Data Reviewed
Vital Signs / I&O / Oxygen:
Vital Signs
Temp Pulse Resp BP Pulse Ox
98.4 F 111 16 127/80 93
07/25/23 07:00 07/25/23 07:00 07/25/23 07:00 07/25/23 07:00 07/25/23 09:18
Intake and Output
07/24/23 07/25/23 07/26/23
06:59 06:59 06:59
Intake Total 168 / 582 1930 / 1930
Output Total 600 / 600 1075 / 1075
Balance -432 / -18 855 / 855
SaO2 93
Nasal Cannula flow liters per 2
minute
Physical Exam
General: Pain (R sided, hard to breathe) and Other (NAD)
HEENT: Normocephalic, Anicteric and Moist Mucous Membranes
Cardiovascular: S1-S2, Regular Rhythm, Murmur (n), JVD (n) and Peripheral Edema (n)
Respiratory: Clear, Non-Labored Respirations, Stridor (n) and Other (decreased at R base)
GI: Soft, Non Distended, Non Tender and Normal Bowel Sounds
Neurology: Awake, Alert, Oriented, AO x 3 and No Motor Deficits
Skin: Warm and Dry
Labs/Micro/Reports
Lab Data
07/25/23 06:20
07/25/23 06:20
Laboratory Results
07/25/23
06:20
APTT 62.9 H
[2023-07-25] MEDS: ROXICODONE 10 MG PO (12:29)
[2023-07-25 13:59] LABS: APTT 132.6 Sec (23.4-35.0)
--- NOTE | 2023-07-25 14:03 | W.PN.HOSP.TC ---
Today's Communication/Plan
-
see note
Assessment / Plan
Assessment / Plan
CT chest PE
Examination is positive for pulmonary embolism, with large embolus burden. There is evidence for significant right heart strain.
Trace amount of pleural fluid on the right. Mild dependent atelectasis in the posterior lower lungs. At this time, there is no evidence for pulmonary infarction by CT.
Coronary artery calcifications are present. Please correlate with symptoms of and risk factors for coronary artery disease, with further workup as clinically appropriate.
LE venous doppler
1. Left lower extremity DVT involving the popliteal, peroneal and posterior tibial veins.
2. No evidence of deep venous thrombosis in the right lower extremity.

1. Bilateral PE - submassive
Right heart strain
-Presented for 1 week of shortness of breath
-+ Palpitations/presyncope feeling. No lower extremity swelling
-Denies travel/history of cancer/family history of hypercoagulable disorder/personal history of previous blood clots/no h/o of miscarriages
-Up-to-date for age-appropriate screening
-CT chest PE finding as above
-TTE showing PAP of 38mm hg with positive mcconell sign
-Trop 1.6 and ProBNP 3960. High D-dimer of 11.95 at admission
-PESI score - 98 - class III (age/HR 110). 30 day mortality of 3.2-7.1%
-LE venous Doppler showing LLE DVT as above
-Mobile Sales Consultant/interventional radiology evaluated patient finding and will consider thrombolysis if clinical condition deteriorates
-Anti phospholipid ab panel sent, will need f/u with hematology in office.
2. Right sided effusion
Acute hypoxic respite insufficiency
-Patient developed new right-sided chest pain and minimal hypoxia overnight
-CT chest with IV contrast done showing new right-sided effusion, official read pending
-Questioning of possible hemothorax, IRAD consulted to do diagnostic thoracentesis
-Increased pain medication.
-Hold heparin drip for now
3. Troponin elevation
-Type II PR likely from right heart strain from bilateral PE
-EKG reviewed and no ST seg changes
-no previous h/o CAD/non smoker
-Trop fluctuating with slow trend down
4. Leukocytosis
-Presumed reactive in nature
-No productive cough/dysuria/diarrhea.
-Monitor off of antibiotic
4. Pre-diabetic
-Hemoglobin A1c of 6.1.
Seasonal allergies
Lumbar radiculopathy
History of left meniscal tear
DVT PPX -heparin drip
Full code
Case discussed with pulmonology/interventional radiology
Total time spent : 52 mins
I personally saw and examined the patient.
I have reviewed all diagnostic interpretations and treatment plans as written.
Time includes patient management by me, time spent at the patients bedside, time to review lab and imaging results, discussing patient care, documentation in the medical record, and time spent with the family or caregiver and discussing care plan
with RN/Consultants.
Anticipated Discharge: 24 - 48 hours
Subjective/Interval History
-
Date of Service: July 25, 2023
Having new onset of right-sided pain
Patient also hypoxic requiring oxygen support
Objective Data
-
Labs:
Laboratory Results
07/25/23 07/25/23
06:20 13:29
WBC 19.6 H
Hgb 14.6
Hct 43.5
Plt Count 268
APTT 62.9 H Pending
Sodium 137
Potassium 4.3
Chloride 105
Carbon Dioxide 22
BUN 12
Creatinine 0.7
Glucose 131 H
Calcium 9.0
Vital Signs:
Vital Signs
Temp Pulse Resp BP Pulse Ox
99.3 F 108 20 149/86 95
07/25/23 11:00 07/25/23 11:00 07/25/23 11:00 07/25/23 11:00 07/25/23 11:00
I&O
07/24/23 07/25/23 07/26/23
06:59 06:59 06:59
Intake Total 168 / 582 1929 / 1929
Output Total 600 / 600 1075 / 1075
Balance -432 / -18 855 / 855
Review of Systems
-
Respiratory: Reports Trouble Breathing; Denies Cough
Cardiac: Reports No Symptoms
Abdomen/GI: Reports No Symptoms
Physical Exam
-
General: No Apparent Distress and Comfortable
HEENT: Negative Oxygen
Respiratory: Clear to Auscultation
Cardiac: Regular Rhythm, S1/S2 and Tachycardic; Negative Murmur or Rub
GI: Soft, Nontender and Nondistended
Musculoskeletal: No Edema
Neuro: Awake, Alert, Oriented, No Motor Deficits and Nonfocal/Grossly Intact
Psych: Calm
[2023-07-25] MEDS: TYLENOL PO (17:16)
[2023-07-25 20:19] LABS: Hepatitis C Antibody Negative (Negative)
[2023-07-25] MEDS: TYLENOL 1000 MG PO (21:30)
[2023-07-25] MEDS: LIDOCAINE 4% PATCH 1 PATCH TOPICAL (21:30)
[2023-07-25] MEDS: HEPARIN 3100 UNITS IV (22:35)
[2023-07-26] VITALS (8 sets, daily range): BP systolic 110–142; BP diastolic 61–85; PULSE 99; O2SAT 96
[2023-07-26] MEDS: HEPARIN 25000 UNITS/250 ML IV ×2 (00:11→17:50)
[2023-07-26] MEDS: ROXICODONE 5 MG PO (04:48)
[2023-07-26 05:29] LABS: Hematocrit 44.6 % (37.0-47.0); Hemoglobin 14.4 g/dL (12.0-16.0); Mean Corp Hgb Conc. 32.3 g/dL (33.0-37.0); Mean Corpuscular Hgb 29.1 pg (27.0-31.0); Mean Corpuscular Volume 90.1 fL (81.0-99.0); Mean Platelet Volume 10.7 fL (7.4-10.4); Platelet Count 238 10^3/uL (130-400); Red Blood Cell Count 4.95 10^6/uL (4.20-5.40); Red Cell Dist. Width 13.5 % (11.5-14.5); White Blood Cell Count 15.8 10^3/uL (4.8-10.8)
[2023-07-26 05:40] LABS: APTT 102.8 Sec (23.4-35.0)
[2023-07-26 05:44] LABS: Blood Urea Nitrogen 12 mg/dl (7-17); Calcium 8.9 mg/dl (8.4-10.2); Carbon Dioxide 25 mmol/L (22-30); Chloride 104 mmol/L (98-107); Estimated Creatinine Clearance 70 ml/min; Glucose 122 mg/dl (70-99); Sodium 138 mmol/L (135-145); eGFR > 60.00
[2023-07-26] MEDS: TYLENOL 1000 MG PO ×2 (08:06→15:20)
--- NOTE | 2023-07-26 09:11 | W.PN.PUL3 ---
Today's Communication / Plan
-
R pleural effusion too small for sampling
IV hep resumed with observation, repeat CXR in AM
Pain control for now
Agree with plan and if not worsening, can assess for discharge
Pulmonary OP FU arrangements
Assessment
-
Mrs Mariaelena Painting is a 78/W adm 05-14 with new onset VALDES and a presyncopal episode on d CAUSTIC ROOM OPERATOR, symptoms developed when she was walking from her car to a convenience store, overnight developed mild intermittent chest pain without radiation. Reports no
past medical history, she is not on outpatient medications, denies allergies. Denies family history of VTE. Denies recent trauma or prolonged periods of immobilization. Reports that back in October 2022 she sustained a left constraint strain and
was recommended a soft cast which she used only for 2 days, then received left knee joint injection, shortly after this event she flew to a back from [place] with no issues. Back in April 2023, she sustained mechanical fall and hit her left
knee and ribs, she follow her PCP on these, apparently the injury was a no consequence. Denies unintentional weight loss, denies night sweats or other symptoms of significance prior to the current event
Bilateral R>L PE
Potentially provoked event due to L knee injury secondary to fall in Apr 2023, but no clear cut case
No PMH or FH or VTE
Markedly elevated D-dimer
Presyncopal event on d CAUSTIC ROOM OPERATOR
New onset R sided pleuritic pain 07/24/23, small R sided pleural effusion on CT
Conditions CAUSTIC ROOM OPERATOR:
Hysterectomy for uterine/bladder prolapse 2014
Negative mammogram Nov 2022
Negative colonoscopy at age 70
Nonsmoker
osteoporosis
high cholesterol
basal cell cancer removal on left eye/caodaism area 01/26
cataract removal b/l 2015
hysterectomy 2004
colonoscopy 2015
Plan:
O2 protocol as needed--Currently on RA, POx 97%
Not on home O2 or BDs
Acapella valve
Aspiration precautions
She has new onset R sdied pleuritic pain, CXR this AM with new R sided infiltrate
Concerning for infarct vs hemorrhage--urgent CT chest, small r sided pleural effusion
Too small to sample, reviewed by IR
Resumed on IV heparin if there is no expansion can continue
Repeat CXR in AM
CTA chest: R>>L PE
TTE: Normal RV size with decreased systolic function. Free wall is akinetic with hyperdynamic apex, Ontiveros's sign. Mild tricuspid regurgitation. Top normal estimated PASP of 38
CAMILO doppler US: LLE DVT (popliteal, peroneal, posterior tibial)
Potentially provoked event due to L knee injury secondary to fall in Apr 2023, but no clear cut case
BNP ^
D-dimer ^
Trop ^
EKG ST 108
Eventual hypercoagulable workup and age/sex related cancer screening as outpatient
Full PESI: class II, low risk 1.7-3.5% 30-d mortality
Heparin drip, continue for now
Benefits and risks of thrombolytics therapy were reviewed with patient
Patient has mild tachycardia and no hypotension in spite of above mentioned TTE changes
Currently risks of aggressive thrombolytic therapy outweigh [id number] notified of options, reasons for conservative standard of care therapy and is in agreement
IRad recommends conservative mgmt for now and to reevaluate for potential intervention accordingly
Continue bedrest �24-48 hours, can go OOB with assistance
DVT prophylaxis-on full anticoagulation
Early nutrition
Early mobilization
Outpatient pulmonary follow-up with [facility], patient agreed
Will need outpatient Hem evaluation and follow up, patient agreed
IMU level of care on adm, follow with pulmonary once off ICU
Stable for telemetry 07-23
D/w Mrs Painting and her daughter at ER
D/w CONTACT LENS INSPECTOR
D/w Dr Cohn 07-23
Subjective Data
-
Date of Service:
Date of Service: July 26, 2023
Chief Complaint: Pulmonary Follow Up
Subjective:
she feels her pain is better controlled on pain meds
no new complaints
Objective Data
Data Reviewed
Vital Signs / I&O / Oxygen:
Vital Signs
Temp Pulse Resp BP Pulse Ox
100.1 F 115 16 127/82 92
07/26/23 07:00 07/26/23 07:00 07/26/23 07:00 07/26/23 07:00 07/26/23 07:00
Intake and Output
07/25/23 07/26/23 07/27/23
06:59 06:59 06:59
Intake Total 1930 / 1930 510 / 510
Output Total 1075 / 1075
Balance 855 / 855 510 / 510
SaO2 92
Nasal Cannula flow liters per 2
minute
Physical Exam
General: Pain (R sided, hard to breathe) and Other (NAD)
HEENT: Normocephalic, Anicteric and Moist Mucous Membranes
Cardiovascular: S1-S2, Regular Rhythm, Murmur (n), JVD (n) and Peripheral Edema (n)
Respiratory: Clear, Non-Labored Respirations, Stridor (n) and Other (decreased at R base)
GI: Soft, Non Distended, Non Tender and Normal Bowel Sounds
Neurology: Awake, Alert, Oriented, AO x 3 and No Motor Deficits
Skin: Warm and Dry
Labs/Micro/Reports
Lab Data
07/26/23 05:14
07/26/23 05:14
Laboratory Results
07/25/23 07/25/23 07/26/23
13:29 21:37 05:14
APTT 132.6 H 70.0 H 102.8 H
[2023-07-26 12:51] LABS: APTT 78.9 Sec (23.4-35.0)
--- NOTE | 2023-07-26 14:10 | W.PN.HOSP.TC ---
Today's Communication/Plan
-
Monitor 1 more night with follow-up x-ray in the morning
Will transition to Eliquis at discharge tomorrow
Assessment / Plan
Assessment / Plan
CT chest PE
Examination is positive for pulmonary embolism, with large embolus burden. There is evidence for significant right heart strain.
Trace amount of pleural fluid on the right. Mild dependent atelectasis in the posterior lower lungs. At this time, there is no evidence for pulmonary infarction by CT.
Coronary artery calcifications are present. Please correlate with symptoms of and risk factors for coronary artery disease, with further workup as clinically appropriate.
LE venous doppler
1. Left lower extremity DVT involving the popliteal, peroneal and posterior tibial veins.
2. No evidence of deep venous thrombosis in the right lower extremity.

1. Bilateral PE - submassive
Right heart strain
-Presented for 1 week of shortness of breath
-+ Palpitations/presyncope feeling. No lower extremity swelling
-Denies travel/history of cancer/family history of hypercoagulable disorder/personal history of previous blood clots/no h/o of miscarriages
-Up-to-date for age-appropriate screening
-CT chest PE finding as above
-TTE showing PAP of 38mm hg with positive mcconell sign
-Trop 1.6 and ProBNP 3960. High D-dimer of 11.95 at admission
-PESI score - 98 - class III (age/HR 110). 30 day mortality of 3.2-7.1%
-LE venous Doppler showing LLE DVT as above
-Music Publisher/interventional radiology evaluated patient finding and will consider thrombolysis if clinical condition deteriorates
-Anti phospholipid ab panel sent, will need f/u with hematology in office.
2. Right sided effusion
Acute hypoxic respite insufficiency
-Patient developed new right-sided chest pain and minimal hypoxia overnight
-CT chest with IV contrast done showing new right-sided effusion, official read pending
-Interventional radiology consulted for diagnostic thoracentesis although not enough collection to do so. Ultrasound showing nonlabored fluid clinical impression is likely benign pleural effusion
-Repeat chest x-ray today showing stable findings. Continue heparin drip for 1 more night with follow-up repeat chest x-ray in the morning again.
3. Troponin elevation
-Type II [place] likely from right heart strain from bilateral PE
-EKG reviewed and no ST seg changes
-no previous h/o CAD/non smoker
-Trop fluctuating with slow trend down
4. Leukocytosis
-Presumed reactive in nature
-No productive cough/dysuria/diarrhea.
-Monitor off of antibiotic
4. Pre-diabetic
-Hemoglobin A1c of 6.1.
Seasonal allergies
Lumbar radiculopathy
History of left meniscal tear
DVT PPX -heparin drip
Full code
Case discussed with pulmonolog
Anticipated Discharge: Within 24 hours
Subjective/Interval History
-
Date of Service: July 26, 2023
Remains hypoxic
Some right-sided chest discomfort in the night
No palpitations/chest discomfort overnight
Objective Data
-
Labs:
Laboratory Results
07/26/23 07/26/23
05:14 12:02
WBC 15.8 H
Hgb 14.4
Hct 44.6
Plt Count 238
APTT 102.8 H 78.9 H
Sodium 138
Potassium 4.0
Chloride 104
Carbon Dioxide 25
BUN 12
Creatinine 0.7
Glucose 122 H
Calcium 8.9
Vital Signs:
Vital Signs
Temp Pulse Resp BP Pulse Ox
100.1 F 99 16 125/76 92
07/26/23 07:00 07/26/23 11:00 07/26/23 11:00 07/26/23 11:00 07/26/23 08:00
I&O
07/25/23 07/26/23 07/27/23
06:59 06:59 06:59
Intake Total 0 / 1929 510 / 510
Output Total 1075 / 1075
Balance 855 / 855 510 / 510
Review of Systems
-
Respiratory: Reports Trouble Breathing
Cardiac: Reports No Symptoms
Abdomen/GI: Reports No Symptoms
Physical Exam
-
General: No Apparent Distress and Comfortable
HEENT: Oxygen (2 L NC)
Respiratory: Clear to Auscultation
Cardiac: Regular Rhythm, S1/S2 and Tachycardic; Negative Murmur or Rub
GI: Soft, Nontender and Nondistended
Musculoskeletal: No Edema
Neuro: Awake, Alert, Oriented, No Motor Deficits and Nonfocal/Grossly Intact
Psych: Calm
--- NOTE | 2023-07-26 15:34 | CM ---
Reviewed chart, patient progressing well in PT. Patient wants to return home when stable.
Plan: Case management will continue to follow and assist with discharge planning. Patient would like to return home when cleared.
[2023-07-26 19:14] LABS: Cardiolipin IgA Antibody <10 APL (<=11); Cardiolipin IgM Antibody <10 MPL (<=12); Cardiolipin Igg Antibody <10 GPL (<=14)
[2023-07-26] MEDS: LIDOCAINE 4% PATCH 1 PATCH TOPICAL (20:43)
[2023-07-26] MEDS: TYLENOL 650 MG PO (20:43)
[2023-07-26 22:05] LABS: Beta-2-Glycoprotein I Ab. IgG <10 SGU (<=20); Beta-2-Glycoprotein I Ab. IgM <10 SMU (<=20)
[2023-07-27] MEDS: TYLENOL PO (00:26)
[2023-07-27 00:54] LABS: Beta-2-Glycoprotein I Ab. IgA <10 SAU (<=20)
[2023-07-27] MEDS: TYLENOL 650 MG PO ×2 (01:57→14:25)
[2023-07-27 02:18] LABS: Phosphatidylserine Ab, IgA 0 APS (0-19); Phosphatidylserine Ab, IgG 0 GPS (0-15); Phosphatidylserine Ab, IgM 4 MPS (0-21)
[2023-07-27 03:00] VITALS: BP 138/73
--- NOTE | 2023-07-27 03:10 | PTCARENOTE ---
school bus monitor alarming for HR >130bpm. BP 138/73, SaO2 94% on room air, 98.8F, resp 18. Pt lying in bed, denies chest pressure, states she 'can feel her heart racing.' JINNY oLzano notified. Pt's HR on telemetry reading between 100-110bpm.
Call [facility] within reach. Updated morning labs ordered.
[2023-07-27 07:10] VITALS: BP 125/79
[2023-07-27 07:20] LABS: % Basophils 0.3 % (0-2); % Eosinophils 1.1 % (0-6); % Immature Granulocytes 0.5 % (0-0.5); % Lymphocytes 16.2 % (20.5-51.1); % Monocytes 8.5 % (1.7-9.3); % Neutrophils 73.4 % (42.2-75.2); Absolute Eosinophils 0.2 10^3/uL (0-0.7); Absolute Immature Granulocytes 0.1 10^3/uL (0-0.05); Absolute Lymphocytes 2.6 10^3/uL (1.2-3.4); Absolute Monocytes 1.4 10^3/uL (0.1-0.6); Absolute Neutrophils 11.7 10^3/uL (1.4-6.5); Hematocrit 41.8 % (37.0-47.0); Hemoglobin 13.7 g/dL (12.0-16.0); Mean Corp Hgb Conc. 32.8 g/dL (33.0-37.0); Mean Corpuscular Hgb 29.1 pg (27.0-31.0); Mean Corpuscular Volume 88.7 fL (81.0-99.0); Mean Platelet Volume 10.8 fL (7.4-10.4); Nucleated Red Blood Cells % 0 %; Platelet Count 267 10^3/uL (130-400); Red Blood Cell Count 4.71 10^6/uL (4.20-5.40); Red Cell Dist. Width 13.4 % (11.5-14.5); White Blood Cell Count 15.9 10^3/uL (4.8-10.8)
[2023-07-27] MEDS: TYLENOL 1000 MG PO (07:40)
[2023-07-27 07:49] LABS: Blood Urea Nitrogen 13 mg/dl (7-17); Calcium 8.7 mg/dl (8.4-10.2); Carbon Dioxide 27 mmol/L (22-30); Chloride 104 mmol/L (98-107); Estimated Creatinine Clearance 61 ml/min; Glucose 114 mg/dl (70-99); Magnesium 2.4 mg/dl (1.6-2.3); Potassium 4.5 mmol/L (3.5-5.1); Sodium 138 mmol/L (135-145); eGFR > 60.00
[2023-07-27 07:50] LABS: APTT 51.7 Sec (23.4-35.0)
[2023-07-27] MEDS: HEPARIN 25000 UNITS/250 ML IV (09:16)
[2023-07-27] MEDS: ELIQUIS 10 MG PO (10:59)
[2023-07-27 11:35] VITALS: BP 127/81
--- NOTE | 2023-07-27 12:46 | W.PN.HOSP.TC ---
Today's Communication/Plan
-
d.c home
Assessment / Plan
Assessment / Plan
CT chest PE
Examination is positive for pulmonary embolism, with large embolus burden. There is evidence for significant right heart strain.
Trace amount of pleural fluid on the right. Mild dependent atelectasis in the posterior lower lungs. At this time, there is no evidence for pulmonary infarction by CT.
Coronary artery calcifications are present. Please correlate with symptoms of and risk factors for coronary artery disease, with further workup as clinically appropriate.
LE venous doppler
1. Left lower extremity DVT involving the popliteal, peroneal and posterior tibial veins.
2. No evidence of deep venous thrombosis in the right lower extremity.

1. Bilateral PE - submassive
Right heart strain
LLE DVT
-Presented for 1 week of shortness of breath
-+ Palpitations/presyncope feeling. No lower extremity swelling
-Denies travel/history of cancer/family history of hypercoagulable disorder/personal history of previous blood clots/no h/o of miscarriages
-Up-to-date for age-appropriate screening
-CT chest PE finding as above
-TTE showing PAP of 38mm hg with positive mcconell sign
-Trop 1.6 and ProBNP 3960. High D-dimer of 11.95 at admission
-PESI score - 98 - class III (age/HR 110). 30 day mortality of 3.2-7.1%
-LE venous Doppler showing LLE DVT as above
-Warehouse Supervisor/interventional radiology evaluated patient finding and will consider thrombolysis if clinical condition deteriorates
-Anti phospholipid ab panel neg. patient started to follow-up with hematology office in 3-6 months.
2. Right sided effusion
Acute hypoxic respite insufficiency
-Patient developed new right-sided chest pain and minimal hypoxia overnight
-CT chest with IV contrast done showing new right-sided effusion, official read pending
-Interventional radiology consulted for diagnostic thoracentesis although not enough collection to do so. Ultrasound showing nonlabored fluid clinical impression is likely benign pleural effusion
-Serial chest x-ray showing stable effusion finding. Transition patient to [facility] today.
3. Troponin elevation
-Type II [place] likely from right heart strain from bilateral PE
-EKG reviewed and no ST seg changes
-no previous h/o CAD/non smoker
-Trop fluctuating with slow trend down
4. Leukocytosis
-Presumed reactive in nature
-No productive cough/dysuria/diarrhea.
-Monitor off of antibiotic
4. Pre-diabetic
-Hemoglobin A1c of 6.1.
Seasonal allergies
Lumbar radiculopathy
History of left meniscal tear
DVT PPX -heparin drip
Full code
More than 30 minutes spent in discharge including
Final examination of the patient
Summarizing hospital stay
Instructions for continuing care to all relevant caregivers
Preparation of discharge records, prescriptions, and referral forms
Total time spent (in minutes): 38 mins
Anticipated Discharge: Today
Subjective/Interval History
-
Date of Service: July 27, 2023
Denies of having any chest discomfort/shortness of breath
No other new issues overnight
Objective Data
-
Labs:
Laboratory Results
07/27/23 07/27/23
07:09 15:00
WBC 15.9 H
Hgb 13.7
Hct 41.8
Plt Count 267
APTT 51.7 H Cancelled
Sodium 138
Potassium 4.5
Chloride 104
Carbon Dioxide 27
BUN 13
Creatinine 0.8
Glucose 114 H
Calcium 8.7
Vital Signs:
Vital Signs
Temp Pulse Resp BP Pulse Ox
98.7 F 109 18 125/79 93
07/27/23 07:10 07/27/23 07:10 07/27/23 07:10 07/27/23 07:10 07/27/23 07:10
I&O
07/26/23 07/27/23 07/28/23
06:59 06:59 06:59
Intake Total 510 / 510 1180 / 1180
Balance 510 / 510 1180 / 1180
Review of Systems
-
Respiratory: Reports No Symptoms
Cardiac: Reports No Symptoms
Abdomen/GI: Reports No Symptoms
Physical Exam
-
General: No Apparent Distress and Comfortable
HEENT: Oxygen (2 L NC)
Respiratory: Clear to Auscultation
Cardiac: Regular Rhythm, S1/S2 and Tachycardic; Negative Murmur or Rub
GI: Soft, Nontender and Nondistended
Musculoskeletal: No Edema
Neuro: Awake, Alert, Oriented, No Motor Deficits and Nonfocal/Grossly Intact
Psych: Calm
--- NOTE | 2023-07-27 14:07 | CM ---
Pt for d/c today
Offered HH - PT/OT/RN - declined
Given coupon for Eliquis
Discussed IMM
Plan - home no needs
[2023-07-27] MEDS: PREVNAR 20 0.5 ML IM (14:18)
--- NOTE | 2023-07-28 07:29 | W.DCSUMMARY ---
Discharge Summary
Discharge Data
Date of Admission: 07/23/23
Date of Discharge: 07/27/23
-
Pending Results: No
Hospital Course
Discharging Physician : Dr Maykel Cohn
Disposition : Home
Primary care physician : Dr Skyla Pereira
Principal Discharge diagnosis :
Submassive bilateral pulmonary embolism
Left lower extremity deep venous thrombosis
Right-sided pleural effusion
Acute hypoxic respite insufficiency
Troponin elevation
Reactive leukocytosis
Prediabetic
Chronic Discharge diagnosis :
Seasonal allergy
Lumbar radiculopathy
History of left knee meniscal tear
Hospital Course :
Patient is a 78-year-old female with above-mentioned past medical history who came to ER with new onset of shortness of breath and chest discomfort ongoing for 1 week. In ER patient had a CT chest PE which showed bilateral pulmonary embolism with
large clot burden. Bulk of clot burden was felt to be in right lung. There was concern of mild RV strain by CT imaging standard. Patient troponin was elevated to 1.6 and proBNP was 3960. Patient hypoxic and hypotensive in ER. Patient was
diagnosed with submassive PE with RV strain. Emergent echocardiogram was done which showed pulmonary artery pressure of 30 mmHg with confirming RV strain. Bill Hiker and interventional radiologist evaluated patient emergently and recommended
against thrombolysis. Patient was started on heparin drip and transferred to ICU for close monitoring. Lower extremity venous Doppler was done was found to having left lower extremity DVT. Patient troponin trended down. Patient was not having
any significant symptoms. Patient was transferred to telemetry floor. On day 3 patient started to having new right-sided lower rib cage pain and minimal hypoxia statin. Chest x-ray was done which showed small effusion and a follow-up repeat CT
chest PE confirmed the finding. Patient had some changes of atelectasis as well. There was question of this effusion being hemorrhagic in nature and interventional radiology was engaged again, unfortunately our ultrasound there is not enough
collection and was felt to be free-flowing normal fluid. Patient was planned to be monitored another 48 hours on heparin drip with serial chest x-ray. No further change happened and effusion remained stable. Clinically this is presumed to be a
transudative effusion at this point. Patient was transition to Eliquis therapy. Patient was able to be weaned off of oxygen as well. Patient was discharged home with follow-up with hematology office in 3 6 months. Patient to follow-up with
pulmonology in 1 to 2 months.
Important imaging findings :
CT chest PE
Examination is positive for pulmonary embolism, with large embolus burden. There is evidence for significant right heart strain.
Trace amount of pleural fluid on the right. Mild dependent atelectasis in the posterior lower lungs. At this time, there is no evidence for pulmonary infarction by CT.
Coronary artery calcifications are present. Please correlate with symptoms of and risk factors for coronary artery disease, with further workup as clinically appropriate.
LE venous doppler
1. Left lower extremity DVT involving the popliteal, peroneal and posterior tibial veins.
2. No evidence of deep venous thrombosis in the right lower extremity.
Procedure findings :
None
Discharge Plan
-
Patient Disposition: Home (Routine Discharge)
Discharge Diagnosis/Procedures: Bilateral PE, Right pleural effusion
Condition: Fair
Diet: Regular
Activity: No strenuous activity
Additional Activity: For 30 days
Driving Restrictions: No driving for 1 week
Bathing Restrictions: OK to Shower
Referrals:
Crispin Cho DO [Active] - None (Please call for an appointment within 3-6 months)
Madelin Gamble DO [Active] - (4-6 weeks, PFTs)
Skyla Pereira PA-C [Family Provider] - in one week
Prescriptions:
New
Eliquis 5 mg tablet
See Rx Instructions .ROUTE .COMPLEX Qty: 74 0RF
Rx Instructions:
Take 2 Tablet Twice daily for 7 Days THEN
Take 1 Tablet Twice daily for maintenance
1st month supply
Eliquis 5 mg tablet
5 mg PO BID Qty: 60 2RF
Rx Instructions:
Take 1 tablet twice daily
2nd month and onward supply
oxycodone 5 mg tablet
5 mg PO Q8H PRN (Reason: Mod sev pain) Qty: 14 0RF
acetaminophen [Tylenol Extra Strength] 500 mg tablet
1,000 mg PO TID PRN (Reason: Mild pain) Qty: 30 0RF
Continued
pseudoephedrine HCl 60 mg Tablet
60 mg PO BIDPRN PRN (Reason: allergies)
guaifenesin [Mucinex] 600 mg Tablet Extended Release 12hr
600 mg PO BIDPRN PRN (Reason: cough)
Tylenol PM Extra Strength 25-500 mg Tablet
2 tab PO Q6H PRN (Reason: headache)
Discharge Orders:
Discharge Patient (As Directed); Ordered 07/27/23
Ordered By: Maykel Cohn
Discharge Date and Time
Discharge Date/Time: 07/27/23 14:44
Print Language: PASHTO
== END 2023-07-27 14:44 | disposition home or self-care (01) | DRG 175 ==
LOC: 3 WEST ACU 16:18
PROVIDERS: Nurse Practitioner Family; Physician Assistant; ADMITTING PHYSICIAN Hospitalist; CONSULT PHYSICIAN Internal Medicine Pulmonary Disease; EMERGENCY PHYSICIAN Emergency Medicine; FAMILY PHYSICIAN Physician Assistant Medical
DX: I26.99 Other pulmonary embolism without acute cor pulmonale (principal); I21.A1 Myocardial infarction type 2; J98.11 Atelectasis; I82.5Z2 Chronic embolism and thrombosis of unspecified deep veins of left distal lower extremity; J90 Pleural effusion, not elsewhere classified; J94.2 Hemothorax
CPT/HCPCS: 71045; 71046; 71260; 71275; 76604; 80048; 80053; 83036; 83735; 83880; 84443; 84484; 85025; 85027; 85379; 85610; 85730; 86146; 86147; 86148; 86803; 90677; 93005; 93306; 93970; 96374; 96376; 97162; 97166; 99291; G0009; Q9967

== ENCOUNTER → 2023-09-02 08:45 | Outpatient (REF) | payer OTHER, SELFPAY | LOC: HWRAD 08:45 | PROVIDERS: ATTENDING PHYSICIAN Nurse Practitioner Family; FAMILY PHYSICIAN Physician Assistant Medical | DX: Z86.718 Personal history of other venous thrombosis and embolism (principal) | CPT/HCPCS: 93971 ==

== ENCOUNTER → 2023-10-23 12:28 | Outpatient (REF) | payer OTHER, SELFPAY | LOC: RCS 12:28 | PROVIDERS: ATTENDING PHYSICIAN Nurse Practitioner Family; FAMILY PHYSICIAN Physician Assistant Medical | DX: Z86.711 Personal history of pulmonary embolism (principal); R06.02 Shortness of breath | CPT/HCPCS: 93306 ==